=== PATIENT | female | born 1995 | race Two or more races ===

== ENCOUNTER → 2023-05-07 | Emergency (ER) | payer OTHER ==
[~2023-05-07] VITALS: Ht 157.5 cm; Wt 108.9 kg
[~2023-05-07] MED LIST: ALBUTEROL2.5 MG/3 M; ALL DAY ALLERGY10 MG; AZITHROMYCIN250 MG PO; BUDESONIDE0.5 MG/21 IH; LEVALBUTER0.63 MG/3 IH; LEVOFLOXACIN500 MG PO; MEDROXYPROGESTE10 MG PO; METHYLPREDNISOLO4 M1 PO; MONTELUKAST SOD10 MG PO; SYNTHROID125 MCG PO
== END | disposition left against medical advice (07) ==
LOC: ER 01:31
DX: Z53.21 Procedure and treatment not carried out due to patient leaving prior to being seen by health care provider (principal)